=== PATIENT | male | born 1945 | race Caucasian/White ===

== ENCOUNTER → 2018-05-02 | Outpatient (REF) | payer MEDICARE ==
[2018-05-02 19:10] LABS: RHEUMATOID FACTOR QUANT < 10.0 IU/ML (<15.0)
[2018-05-05 14:12] LABS: ANTINUCLEAR ANTIBODIES DIRECT Negative (Negative)
== END ==
LOC: M LAB REF 17:19
DX: R51 Headache (principal); R42 Dizziness and giddiness
CPT/HCPCS: 86038

== ENCOUNTER 2022-02-27 12:09 | Inpatient (IN) | payer MEDICAID, MEDICARE ==
[~2022-02-27] VITALS: Ht 177.8 cm; Wt 68.2 kg
[~2022-02-27 12:09] MED LIST: ACET65TA OR; ASPI81TA83 OR; LIPI20TA OR; MULTIVIT PO; PLAV75TA2 OR; PRIN10TA OR; PROT1TAB2 OR
[2022-02-27] MEDS ORDERED: BOOSTRIX/ADACEL VACCINE (DIPHTH/PERTUSS/ACELL/TETANUS) 0.5ML SYR IM ONE (12:20)
[2022-02-27] MEDS ORDERED: MORPHINE 2 MG/ML 1ML VIAL IV PRN ×3 (13:45→21:05)
[2022-02-27 14:13] LABS: BASO # 0.1 10^3/uL (0.0-0.2); BASO % 0.5 % (0.0-1.0); EOS % 0.4 % (0.0-3.0); HEMATOCRIT 43.1 % (42.0-52.0); HEMOGLOBIN 14.2 g/dl (13.5-17.5); LYMPH # 1.2 10^3/uL (1.5-5.0); LYMPH % 12.7 % (24.0-44.0); MEAN CORPUSCULAR HEMOGLOBIN 32.8 pg (27.0-33.0); MEAN CORPUSCULAR HGB CONC 32.9 g/dl (32.0-36.5); MEAN CORPUSCULAR VOLUME 99.5 fl (80.0-96.0); MONO # 0.9 10^3/uL (0.0-0.8); MONO % 9.3 % (2.0-8.0); NEUTROPHILS # 7.1 10^3/uL (1.5-8.5); NEUTROPHILS % 76.9 % (36.0-66.0); PLATELET COUNT, AUTOMATED 367 10^3/uL (150-450); RED BLOOD COUNT 4.33 10^6/uL (4.30-6.10); WHITE BLOOD COUNT 9.2 10^3/uL (4.0-10.0)
[2022-02-27 14:35] LABS: ALBUMIN 3.9 GM/DL (3.2-5.2); ALT/SGPT 21 U/L (12-78); BILIRUBIN,TOTAL 1.2 MG/DL (0.2-1.0); BLOOD UREA NITROGEN 17 MG/DL (7-18); CALCIUM LEVEL 9.5 MG/DL (8.8-10.2); CARBON DIOXIDE LEVEL 29 MEQ/L (21-32); CHLORIDE LEVEL 106 MEQ/L (98-107); CREATININE FOR GFR 0.91 MG/DL (0.70-1.30); GLOMERULAR FILTRATION RATE > 60.0 (>42); GLUCOSE, FASTING 93 MG/DL (70-100); POTASSIUM SERUM 4.5 MEQ/L (3.5-5.1); SODIUM LEVEL 138 MEQ/L (136-145); TOTAL PROTEIN 7.6 GM/DL (6.4-8.2)
[2022-02-27 14:35] LABS: CK-MB VALUE MASS 4.6 NG/ML (<3.6); MB/CK RELATIVE INDEX 3.17 (< OR =4)
[2022-02-27 14:53] LABS: RSV AMPLIFICATION NEGATIVE (NEGATIVE)
[2022-02-27] MEDS ORDERED: MOM 30ML SUSPENSION UDC PO PRN (16:20)
[2022-02-27] MEDS ORDERED: MAALOX 30 ML SUSP *UDC PO PRN (16:20)
[2022-02-27] MEDS ORDERED: ACETAMINOPHEN TAB 650MG DOSE (2X325MG) PO PRN (16:20)
[2022-02-27] MEDS ORDERED: ASPI81TA26 PO (16:58)
[2022-02-27] MEDS ORDERED: ATOR1TAB19 PO (16:58)
[2022-02-27] MEDS ORDERED: HOME MED LIST COMPLETE! XX SCH (17:00)
[2022-02-27] MEDS ORDERED: TRANEXAMIC ACID 100 MG/ML 10ML VIAL As Ordered ONE (18:42)
[2022-02-27] MEDS ORDERED: BUPIVACAINE/EPIN 0.5% 30 ML VIAL As Ordered ONE (18:42)
[2022-02-27] MEDS ORDERED: ceFAZolin 1GM VIAL (J0690 PER 500MG) As Ordered ONE (18:43)
[2022-02-27] MEDS ORDERED: propofoL 200 MG/20 ML VIAL As Ordered ONE ×2 (18:49→20:47)
[2022-02-27] MEDS ORDERED: fentaNYL 100 MCG/2 ML INJECTION As Ordered ONE (18:49)
[2022-02-27] MEDS ORDERED: MIDAZOLAM INJ 2MG/2ML VIAL (J2250 PER 1MG) As Ordered ONE (18:49)
[2022-02-27] MEDS ORDERED: LIDOCAINE 2% 100MG/5ML SDV (FOR ANES.) As Ordered ONE (18:49)
[2022-02-27] MEDS ORDERED: KETAMINE HCL 200 MG/20 ML VIAL As Ordered ONE (18:58)
[2022-02-27] MEDS ORDERED: ceFAZolin 2 GM/D5W 50 ML IV BAG (J0690 PER 500MG) As Ordered ONE (19:09)
[2022-02-27] MEDS ORDERED: ePHEDrine SULFATE 25 MG/5 ML(5MG/ML) SYRINGE As Ordered ONE (20:33)
[2022-02-27] MEDS ORDERED: PHENYLephrine 500MCG 5ML (100MCG/ML) SYRINGE As Ordered ONE (20:33)
[2022-02-27] MEDS ORDERED: ACETAMINOPHEN 1000MG 100ML IV BTL (OFIRMEV) (J0131 PER 10MG) As Ordered ONE (20:47)
[2022-02-27] MEDS ORDERED: LR 1,000 ML IV SCH ×2 (21:05→22:00)
[2022-02-27] MEDS ORDERED: fentaNYL 100 MCG/2 ML INJECTION IV PRN (21:05)
[2022-02-27] MEDS ORDERED: oxyCODONE 5MG TAB PO PRN ×3 (21:05→23:20)
[2022-02-27] MEDS ORDERED: ONDANSETRON 4MG/2ML VIAL IV PRN ×2 (21:05→22:00)
[2022-02-27 22:52] VITALS: BP 124/59
[2022-02-27] MEDS ORDERED: traMADol 50 MG TAB PO PRN (23:20)
[2022-02-27] MEDS ORDERED: SENNA 8.6 MG TAB (SENOKOT) PO PRN (23:20)
[2022-02-27] MEDS: ACETAMINOPHEN TAB 650MG DOSE (2X325MG) PO SCH (23:45)
[2022-02-27] MEDS: NAPROXEN 250 MG TAB PO SCH (23:45)
[2022-02-27] MEDS: DOCUSATE SODIUM 100MG CAPSULE PO SCH (23:45)
[2022-02-27 23:50] VITALS: BP 123/67
[2022-02-28] VITALS (8 sets, daily range): BP systolic 107–124; BP diastolic 50–68
[2022-02-28] MEDS: ceFAZolin SOD 2 GM in IV 1 EA IV SCH ×2 (02:10→09:18)
[2022-02-28] MEDS: ACETAMINOPHEN TAB 650MG DOSE (2X325MG) PO SCH ×4 (05:24→23:44)
[2022-02-28 06:12] LABS: BASO % 0.4 % (0.0-1.0); EOS # 0.1 10^3/uL (0.0-0.5); EOS % 1.1 % (0.0-3.0); HEMATOCRIT 34.7 % (42.0-52.0); HEMOGLOBIN 11.5 g/dl (13.5-17.5); LYMPH # 1.6 10^3/uL (1.5-5.0); LYMPH % 21.7 % (24.0-44.0); MEAN CORPUSCULAR HEMOGLOBIN 33.6 pg (27.0-33.0); MEAN CORPUSCULAR HGB CONC 33.1 g/dl (32.0-36.5); MEAN CORPUSCULAR VOLUME 101.5 fl (80.0-96.0); MONO # 0.8 10^3/uL (0.0-0.8); MONO % 10.3 % (2.0-8.0); NEUTROPHILS # 4.9 10^3/uL (1.5-8.5); NEUTROPHILS % 66.1 % (36.0-66.0); PLATELET COUNT, AUTOMATED 296 10^3/uL (150-450); RED BLOOD COUNT 3.42 10^6/uL (4.30-6.10); WHITE BLOOD COUNT 7.4 10^3/uL (4.0-10.0)
[2022-02-28 06:56] LABS: BLOOD UREA NITROGEN 17 MG/DL (7-18); CARBON DIOXIDE LEVEL 30 MEQ/L (21-32); CHLORIDE LEVEL 104 MEQ/L (98-107); CREATININE FOR GFR 0.92 MG/DL (0.70-1.30); GLOMERULAR FILTRATION RATE > 60.0 (>42); GLUCOSE, FASTING 100 MG/DL (70-100); MAGNESIUM LEVEL 2.2 MG/DL (1.8-2.4); SODIUM LEVEL 138 MEQ/L (136-145)
[2022-02-28] MEDS: ASPIRIN 81MG ENTERIC TABLET PO SCH ×3 (09:00→20:18)
[2022-02-28] MEDS: FERROUS SULFATE 325MG TAB PO SCH (09:19)
[2022-02-28] MEDS: DOCUSATE SODIUM 100MG CAPSULE PO SCH ×2 (09:19→20:18)
[2022-02-28] MEDS: NAPROXEN 250 MG TAB PO SCH ×2 (09:21→20:18)
[2022-02-28] MEDS: ASCORBIC ACID 500 MG TAB PO SCH (09:21)
[2022-02-28 10:02] LABS: HEMATOCRIT 32.2 % (42.0-52.0); HEMOGLOBIN 10.8 g/dl (13.5-17.5); MEAN CORPUSCULAR HEMOGLOBIN 33.2 pg (27.0-33.0); MEAN CORPUSCULAR HGB CONC 33.5 g/dl (32.0-36.5); MEAN CORPUSCULAR VOLUME 99.1 fl (80.0-96.0); PLATELET COUNT, AUTOMATED 253 10^3/uL (150-450); RED BLOOD COUNT 3.25 10^6/uL (4.30-6.10); WHITE BLOOD COUNT 7.7 10^3/uL (4.0-10.0)
[2022-02-28] MEDS ORDERED: FERR1TAB8 PO (10:38)
[2022-02-28] MEDS ORDERED: ASCO50TA PO (10:38)
[2022-02-28] MEDS ORDERED: OXYC-517 PO (10:38)
[2022-02-28] MEDS ORDERED: ASPI81TA26 PO (10:38)
[2022-02-28] MEDS ORDERED: COLA100C5 PO (10:38)
[2022-02-28] MEDS ORDERED: TRAM50TA2 PO (10:38)
[2022-02-28] MEDS: ATORVASTATIN 10 MG TAB PO SCH (16:28)
[2022-02-28] MEDS ORDERED: METOCLOPRAMIDE INJ 10MG/2ML VIAL (J2765 PER 1) IV PRN (16:30)
[2022-02-28] MEDS ORDERED: MECLIZINE 25 MG TABLET PO ONE (16:30)
[2022-02-28 16:35] LABS: BASO % 0.3 % (0.0-1.0); EOS % 0.4 % (0.0-3.0); HEMATOCRIT 33.4 % (42.0-52.0); HEMOGLOBIN 11.1 g/dl (13.5-17.5); LYMPH # 0.9 10^3/uL (1.5-5.0); LYMPH % 12.4 % (24.0-44.0); MEAN CORPUSCULAR HEMOGLOBIN 33.5 pg (27.0-33.0); MEAN CORPUSCULAR HGB CONC 33.2 g/dl (32.0-36.5); MEAN CORPUSCULAR VOLUME 100.9 fl (80.0-96.0); MONO # 0.6 10^3/uL (0.0-0.8); MONO % 8.4 % (2.0-8.0); NEUTROPHILS # 5.7 10^3/uL (1.5-8.5); PLATELET COUNT, AUTOMATED 294 10^3/uL (150-450); RED BLOOD COUNT 3.31 10^6/uL (4.30-6.10); WHITE BLOOD COUNT 7.4 10^3/uL (4.0-10.0)
[2022-02-28 17:00] LABS: AMYLASE 37 U/L (25-115); LIPASE 87 U/L (73-393)
[2022-02-28 17:07] LABS: CK-MB VALUE MASS 36.8 NG/ML (<3.6); MB/CK RELATIVE INDEX 4.2 (< OR =4)
[2022-02-28] MEDS: NS 1,000 ML IV SCH ×2 (17:31→20:22)
[2022-02-28 20:56] LABS: MB/CK RELATIVE INDEX 3.36 (< OR =4)
[2022-03-01] MEDS: ACETAMINOPHEN TAB 650MG DOSE (2X325MG) PO SCH ×2 (04:18→11:03)
[2022-03-01 07:20] LABS: BASO % 0.4 % (0.0-1.0); EOS # 0.1 10^3/uL (0.0-0.5); EOS % 1.5 % (0.0-3.0); HEMATOCRIT 32.5 % (42.0-52.0); HEMOGLOBIN 10.5 g/dl (13.5-17.5); LYMPH # 1.3 10^3/uL (1.5-5.0); LYMPH % 17.9 % (24.0-44.0); MEAN CORPUSCULAR HEMOGLOBIN 32.5 pg (27.0-33.0); MEAN CORPUSCULAR HGB CONC 32.3 g/dl (32.0-36.5); MEAN CORPUSCULAR VOLUME 100.6 fl (80.0-96.0); MONO # 0.9 10^3/uL (0.0-0.8); NEUTROPHILS # 5.1 10^3/uL (1.5-8.5); NEUTROPHILS % 67.9 % (36.0-66.0); PLATELET COUNT, AUTOMATED 259 10^3/uL (150-450); RED BLOOD COUNT 3.23 10^6/uL (4.30-6.10); WHITE BLOOD COUNT 7.5 10^3/uL (4.0-10.0)
[2022-03-01 07:43] LABS: BLOOD UREA NITROGEN 13 MG/DL (7-18); CALCIUM LEVEL 7.8 MG/DL (8.8-10.2); CARBON DIOXIDE LEVEL 29 MEQ/L (21-32); CHLORIDE LEVEL 109 MEQ/L (98-107); CREATININE FOR GFR 0.83 MG/DL (0.70-1.30); GLOMERULAR FILTRATION RATE > 60.0 (>42); GLUCOSE, FASTING 96 MG/DL (70-100); MAGNESIUM LEVEL 2.1 MG/DL (1.8-2.4); POTASSIUM SERUM 4.4 MEQ/L (3.5-5.1); SODIUM LEVEL 141 MEQ/L (136-145)
[2022-03-01] MEDS: ASPIRIN 81MG ENTERIC TABLET PO SCH (08:54)
[2022-03-01] MEDS: NAPROXEN 250 MG TAB PO SCH (08:54)
[2022-03-01] MEDS: FERROUS SULFATE 325MG TAB PO SCH (08:54)
[2022-03-01] MEDS: DOCUSATE SODIUM 100MG CAPSULE PO SCH (08:54)
[2022-03-01] MEDS: ASCORBIC ACID 500 MG TAB PO SCH (08:54)
[2022-03-01] MEDS: ATORVASTATIN 10 MG TAB PO SCH (08:54)
[2022-03-01] MEDS ORDERED: MECL-86 PO (09:15)
[2022-03-01 10:00] VITALS: BP 99/48
== END 2022-03-01 12:00 | disposition home health service (06) | DRG 482 ==
LOC: M ED 12:09 → M ED INP 16:17 → M MS5PR 22:45
PROVIDERS: ADMIT Internal Medicine; ATTEND Internal Medicine
PROC: BQ11ZZZ Fluoroscopy of Left Hip (ICD-10-PCS; 2022-02-27)
PROC: 0SSB04Z Reposition Left Hip Joint with Internal Fixation Device, Open Approach (ICD-10-PCS; principal; 2022-02-27 18:00)
DX: S72.145A Nondisplaced intertrochanteric fracture of left femur, initial encounter for closed fracture (principal); S01.01XA Laceration without foreign body of scalp, initial encounter; S61.412A Laceration without foreign body of left hand, initial encounter; V10.0XXA Pedal cycle driver injured in collision with pedestrian or animal in nontraffic accident, initial encounter; Y92.9 Unspecified place or not applicable; D64.9 Anemia, unspecified; E78.5 Hyperlipidemia, unspecified; Z79.82 Long term (current) use of aspirin; Z90.49 Acquired absence of other specified parts of digestive tract; Z20.822 Contact with and (suspected) exposure to COVID-19; I16.0 Hypertensive urgency; Z86.73 Personal history of transient ischemic attack (TIA), and cerebral infarction without residual deficits

== ENCOUNTER → 2022-03-12 | Outpatient (CLI) | payer MEDICARE ==
[~2022-03-12] MED LIST changes: +ASCO50TA PO; +ASPI81TA26 PO; +ATOR1TAB19 PO; +COLA100C5 PO; +FERR1TAB8 PO; +MECL-86 PO; +OXYC-517 PO; +TRAM50TA2 PO
== END ==
LOC: M SOG 13:07
PROVIDERS: ATTEND Orthopaedic Surgery Adult Reconstructive Orthopaedic Surgery
DX: S72.102A Unspecified trochanteric fracture of left femur, initial encounter for closed fracture (principal)